=== PATIENT | female | born 1985 | race Caucasian/White ===

== ENCOUNTER 2019-03-31 17:35 | Observation (INO) ==
[2019-03-31] MEDS ORDERED: *HR* LORazepam 2 MG/ML VIAL IVP ONE (17:44)
--- NOTE | 2019-03-31 17:54 | Emergency Department Note ---
Disposition Clinical Impression: Generalized seizure, IVDU (intravenous drug user) Disposition: Admitted As Inpatient Condition: Fair Time of Disposition: 19:36 Seizure HPI - General Time Seen by Provider: 03/31/19 17:42 Source: patient, EMS Mode of arrival: EMS Limitations: no limitations Nursing Notes Reviewed: Yes Vital Signs Reviewed: Yes - History of Present Illness HPI Narrative: [facility]. Possibly several seizures. Known seizure disorder. Has been noncompliant with her medications. She also complains of neck pain, chest pain, fevers. She uses IV methamphetamine She also states she has recently experienced fevers and dark colored urine. She feels a heaviness in her chest Pt Subjective Complaint: seizure Onset (ago): Just [employer] Description of Episode: tonic-clonic movement Witnessed: yes - by bystander Associated trauma secondary to event: Yes (Neck pain) Seizure History: known seizure disorder Place: other ([facility]) Possible Precipitating Event: drug use (Injects methamphetamine), other (Has not been compliant with her seizure medications which include Lamictal, Depakote, gabapentin) Associated symptoms: Reports: chest pain, confusion, fever/chills Treatments prior to arrival: none - Related Data Home Medications Medication Instructions Recorded Confirmed Buprenorphine HCl/Naloxone HCl 1 tab SL BID 03/31/19 03/31/19 [Buprenorphin-Naloxon 8-2 mg Sl] cloNIDine HCl [CloNIDine HCl] 0.1 mg PO BID 03/31/19 03/31/19 Allergies Allergy/AdvReac Type Severity Reaction Status Date / Time Sulfa (Sulfonamide AdvReac Hives Verified 03/12/15 22:12 Antibiotics) All systems ED: reviewed and negative except as stated. Constitutional: Reports: fever, chills Eyes: Reports: as per HPI ENT ED: Reports: as per HPI Cardiovascular: Reports: chest pain Respiratory: Reports: as per HPI Gastrointestinal: Reports: as per HPI Genitourinary: Reports: as per HPI, other ("Dark urine") Musculoskeletal: Reports: neck pain Integumentary: Reports: as per HPI Neurological: Reports: numbness, other (Seizure) Psychiatric: Reports: as per HPI Endocrine: Reports: as per HPI Hematological/Lymphatic: Reports: as per HPI Allergic/Immunologic: Reports: as per HPI Past Medical History - Past Medical History Source: patient, old records reviewed Medical history: Reports: hepatitis, seizures, other Surgical history: Reports: other (dilation and curettage) Psychiatric history: Reports: anxiety, depression, PTSD FUR LINER history: Reports: bilateral tubal ligation - Social History Smoking Status: Current every day smoker Smokeless Tobacco Status: No Alcohol use: Reports: none Drug use: Reports: cocaine, marijuana, methamphetamine, IV Drug Use Physical Exam - General General appearance: alert, anxious - Head Head exam: atraumatic - Eye Eye exam: Present: normal appearance, PERRL - ENT ENT exam: normal exam - Neck Neck exam: Present: other (Track day) - Chest Chest inspection: Present: normal inspection, symmetric chest wall rise - Respiratory Respiratory exam: Present: normal lung sounds bilaterally - Cardiovascular Cardiovascular exam: Present: regular rate, normal rhythm - Rectal Exam Rectal exam: Present: deferred - Extremities Exam Extremities exam: Present: normal inspection, other (track day. Multiple superficial sores from self picking) - Neurological Exam Neurological exam: Present: alert, oriented X3, CN II-XII intact - Psychiatric Psychiatric exam: Present: anxious - Skin Skin exam: Present: warm, dry Course Course Narrative: Patient presented with a seizure. Known history thereof. She has been noncompliant with her medications. Secondarily she complains of recent fevers. History of active IV drug use. Con cern for bacteremia versus endocarditis. Vital Signs Temperature 98.6 F 03/31/19 17:39 Pulse Rate 90 03/31/19 17:39 Respiratory Rate 18 03/31/19 17:39 Blood Pressure 158/130 03/31/19 17:39 O2 Sat by Pulse Oximetry 97 03/31/19 17:39 Temperature 98.6 F 03/31/19 17:39 Pulse Rate 90 03/31/19 17:39 Respiratory Rate 18 03/31/19 17:39 Blood Pressure 158/130 03/31/19 17:39 O2 Sat by Pulse Oximetry 97 03/31/19 17:39 Oxygen Delivery Oxygen Delivery Room Air Seizure - Medical Records Medical records reviewed: Yes I reviewed the patient's medical records. - Lab Data Lab results reviewed: Yes I reviewed the patient's lab results. Result diagrams: 03/31/19 17:52 03/31/19 17:52 Lab Results 03/31/19 03/31/19 03/31/19 Range/Units 17:52 17:52 17:52 WBC 6.1 (4.3-11.1) K/mcL RBC 4.28 (3.82-4.97) M/mcL Hgb 13.0 (11.5-15.4) g/dL Hct 38.4 (35.3-44.9) % MCV 89.7 (83.0-100.0) fL MCH 30.4 (28.0-33.3) pg MCHC 33.9 (31.6-35.5) g/dL RDW 12.7 (11.5-14.5) % Plt Count 185 (140-400) K/mcL MPV 11.1 (9.4-12.4) fL Immature Gran % 0.3 (0-4) % Seg Neutrophils % 53.7 % Lymphocytes % 34.3 % Monocytes % 9.2 % Eosinophils % 1.8 % Basophils % 0.7 % Neutrophils # 3.3 (1.6-8.9) K/mcL Lymphocytes # 2.1 (0.6-4.6) K/mcL Monocytes # 0.6 (0.0-1.3) K/mcL Eosinophils # 0.1 (0.0-0.6) K/mcL Basophils # 0.0 (0.0-0.2) K/mcL ESR 14 (0-15) mm/hr Sodium 136 (136-145) mEq/L Potassium 3.9 (3.5-5.1) mEq/L Chloride 105 (98-107) mEq/L Carbon Dioxide 24 (23-29) mEq/L BUN 16 (6-20) mg/dL Creatinine 0.68 (0.60-1.20) mg/dL Est GFR ( Amer) > 60 (> 60) Est GFR (Non-Af Amer) > 60 (> 60) BUN/Creatinine Ratio 24 (6-26) Glucose 88 (70-105) mg/dL Calculated Osmolality 283 (280-300) Lactic Acid (0.5-2.2) mmol/L Calcium 9.3 (8.6-10.3) mg/dL Magnesium 2.0 (1.6-2.6) mg/dL Total Bilirubin 0.6 (0.3-1.0) mg/dL AST 35 (13-39) Units/L ALT 34 (7-52) Units/L Alkaline Phosphatase 79 (34-104) Units/L C-Reactive Protein < 5 (Less than 10) mg/L Serum Total Protein 7.3 (6.4-8.9) g/dL Albumin 4.3 (3.5-5.7) g/dL Globulin 3.0 (2.4-3.5) g/dL Albumin/Globulin Ratio 1.4 (1.1-2.2) Urine Color (Yellow) Urine Clarity (Clear) Urine pH (5.0-8.0) pH Units Ur Specific [place] (1.010-1.025) Urine Protein (Neg-Trace) mg/dL Urine Glucose (UA) (Normal) mg/dL Urine Ketones (Negative) mg/dL Urine Blood (Negative) Urine Nitrite (Negative) Urine Bilirubin (Negative) Urine Urobilinogen (Normal) mg/dL Ur Leukocyte Esterase (Negative) Valproic Acid < 4 L (50-100) mcg/mL 03/31/19 03/31/19 Range/Units 17:52 19:01 WBC (4.3-11.1) K/mcL RBC (3.82-4.97) M/mcL Hgb (11.5-15.4) g/dL Hct (35.3-44.9) % MCV (83.0-100.0) fL MCH (28.0-33.3) pg MCHC (31.6-35.5) g/dL RDW (11.5-14.5) % Plt Count (140-400) K/mcL MPV (9.4-12.4) fL Immature Gran % (0-4) % Seg Neutrophils % % Lymphocytes % % Monocytes % % Eosinophils % % Basophils % % Neutrophils # (1.6-8.9) K/mcL Lymphocytes # (0.6-4.6) K/mcL Monocytes # (0.0-1.3) K/mcL Eosinophils # (0.0-0.6) K/mcL Basophils # (0.0-0.2) K/mcL ESR (0-15) mm/hr Sodium (136-145) mEq/L Potassium (3.5-5.1) mEq/L Chloride (98-107) mEq/L Carbon Dioxide (23-29) mEq/L BUN (6-20) mg/dL Creatinine (0.60-1.20) mg/dL Est GFR ( Amer) (> 60) Est GFR (Non-Af Amer) (> 60) BUN/Creatinine Ratio (6-26) Glucose (70-105) mg/dL Calculated Osmolality (280-300) Lactic Acid 0.4 L (0.5-2.2) mmol/L Calcium (8.6-10.3) mg/dL Magnesium (1.6-2.6) mg/dL Total Bilirubin (0.3-1.0) mg/dL AST (13-39) Units/L ALT (7-52) Units/L Alkaline Phosphatase (34-104) Units/L C-Reactive Protein (Less than 10) mg/L Serum Total Protein (6.4-8.9) g/dL Albumin (3.5-5.7) g/dL Globulin (2.4-3.5) g/dL Albumin/Globulin Ratio (1.1-2.2) Urine Color Yellow (Yellow) Urine Clarity Cloudy A (Clear) Urine pH 7.0 (5.0-8.0) pH Units Ur Specific [place] 1.020 (1.010-1.025) Urine Protein Negative (Neg-Trace) mg/dL Urine Glucose (UA) Normal (Normal) mg/dL Urine Ketones Trace H (Negative) mg/dL Urine Blood Negative (Negative) Urine Nitrite Negative (Negative) Urine Bilirubin Negative (Negative) Urine Urobilinogen Normal (Normal) mg/dL Ur Leukocyte Esterase Negative (Negative) Valproic Acid (50-100) mcg/mL - Radiology Data Radiology results reviewed: Yes I reviewed the patient's radiology results. - EKG Data EKG attestation: Yes I reviewed and interpreted this EKG.
[2019-03-31 18:34] LABS: Basophils % 0.7 %; Eosinophils # 0.1 K/mcL (0.0-0.6); Eosinophils % 1.8 %; Hematocrit 38.4 % (35.3-44.9); Immature Granulocytes % 0.3 % (0-4); Lymphocytes # 2.1 K/mcL (0.6-4.6); Lymphocytes % 34.3 %; Mean Corpuscular HGB Conc 33.9 g/dL (31.6-35.5); Mean Corpuscular Hemoglobin 30.4 pg (28.0-33.3); Mean Corpuscular Volume 89.7 fL (83.0-100.0); Mean Platelet Volume 11.1 fL (9.4-12.4); Monocytes # 0.6 K/mcL (0.0-1.3); Monocytes % 9.2 %; Neutrophils # 3.3 K/mcL (1.6-8.9); Platelet Count 185 K/mcL (140-400); Red Blood Count 4.28 M/mcL (3.82-4.97); Red Cell Distribution Width 12.7 % (11.5-14.5); Segmented Neutrophils % 53.7 %; White Blood Count 6.1 K/mcL (4.3-11.1)
[2019-03-31 19:15] LABS: Bilirubin,Urine Negative (Negative); Blood,Urine Negative (Negative); Clarity,Urine Cloudy (Clear); Color,Urine Yellow (Yellow); Glucose,Urine (UA) Normal (Normal); Ketones,Urine Trace mg/dL (Negative); Leukocyte Esterase,Urine Negative (Negative); Nitrite,Urine Negative (Negative); Protein,Urine Negative (Neg-Trace); Urobilinogen,Urine Normal (Normal)
[2019-03-31 19:20] LABS: Alanine Aminotransferase 34 Units/L (7-52); Albumin 4.3 g/dL (3.5-5.7); Albumin/Globulin Ratio 1.4 (1.1-2.2); Alkaline Phosphatase 79 Units/L (34-104); Aspartate Amino Transferase 35 Units/L (13-39); BUN/Creatinine Ratio 24 (6-26); Bilirubin,Total 0.6 mg/dL (0.3-1.0); Blood Urea Nitrogen 16 mg/dL (6-20); C-Reactive Protein < 5 mg/L (Less than 10); Calcium 9.3 mg/dL (8.6-10.3); Carbon Dioxide 24 mEq/L (23-29); Chloride 105 mEq/L (98-107); Glucose 88 mg/dL (70-105); Osmolality,Calculated 283 (280-300); Potassium 3.9 mEq/L (3.5-5.1); Sodium 136 mEq/L (136-145); Total Protein 7.3 g/dL (6.4-8.9); Valproate < 4 mcg/mL (50-100); eGFR For African Americans > 60 (> 60); eGFR For Non-African Americans > 60 (> 60)
[2019-03-31] MEDS ORDERED: *HR* LORazepam 2 MG/ML VIAL IVP PRN (20:28)
[2019-03-31] MEDS ORDERED: Acetaminophen 325 MG TABLET PO PRN (20:28)
[2019-03-31] MEDS ORDERED: traMADol 50 MG TABLET PO PRN (20:28)
[2019-03-31] MEDS ORDERED: Naloxone 0.4 MG/ML INJ IVP PRN (20:28)
[2019-03-31] MEDS ORDERED: Ketorolac 30 MG/ML VIAL IVP PRN (20:28)
[2019-03-31] MEDS ORDERED: levETIRAcetam 1,000 MG in 0.9 % Sodium Chloride 100 ML IVPB ONE (20:36)
[2019-03-31 20:45] LABS: Bacteria,Urine None Seen per hpf (None-Few); Hyaline Casts,Urine None Seen per lpf (None-Few); Mucus,Urine Few (Few); RBC,Urine 0-3 per hpf (0-3); Squamous Epithelial Cell,Urine Moderate per lpf (None-Few); WBC,Urine 0-3 per hpf (0-3)
[2019-03-31] MEDS ORDERED: rOPINIRole 0.25 MG TABLET PO SCH (21:00)
[2019-03-31] MEDS: Ringers Solution, Lactated 1,000 ML IVC SCH (21:29)
[2019-03-31] MEDS: cloNIDine HCl 0.1 MG TABLET PO SCH (22:14)
[2019-03-31] MEDS: Gabapentin 400 MG CAPSULE PO SCH (22:14)
--- NOTE | 2019-03-31 22:37 | Internal Med History&Physical ---
Date of Encounter: 03/31/19 Time of Encounter: 22:35 Internal Medicine - H&P: HPI Chief complaint: seizure Admitted From: Home Plans for Post Hospital Care: Home History of present illness: Demetria Montez is a 33-year-old woman with seizure disorder (not adherent to medications), mood disorder and substance use disorder. She says she has been having seizures of increasing frequency over the last number of days stating that yesterday was a bad one. Today she was incarcerated and was witnessed to have multiple seizures and [facility]. She was brought in for evaluation at which time she was complaining of generalized body aches and also given reports of generalized malaise. No seizure activity was witnessed in the ER. On her lab work was grossly within normal limits. It is reported by the ED physician that she complained of having fevers and chills over the past number of weeks for which reason blood cultures were obtained given her illicit drug use by injection history. Vitals: Reviewed General: Unkempt young woman lying in bed in moderate discomfort. Skin: Warm, dry with multiple track day and lesions of skin popping. HEENT: Slightly dry mucous membranes. No conjunctivae pallor. Neck: No lymphadenopathy. No JVD. No carotid bruits. No palpable thyroid. Chest: Normal thoracic expansion. Normal breath sounds. Clear to auscultation. Heart: Normal S1 & S2; rhythmic. No rubs or murmurs. Abdomen: Non-distended, soft and non-tender to palpation. No peritoneal reaction. Extremities: No clubbing, cyanosis or edema. No calf tenderness. Normal distal pulses. Neurological: Awake, alert and oriented to person, place and time. No focal deficits. Psych: Affect appropriate. Assessment/Plan 1. Seizures: Secondary to nonadherence to her medications and likely triggered by her ongoing illicit drug use activity. She was unable to specify what medications exactly she is on so with the help of our pharmacist we were able to obtain records of what she has been prescribed in the past 1 year. We will give her loading dose of Keppra tonight and continue with 500 mg twice a day as of tomorrow. She is also on gabapentin. Seizure precautions ordered. Fluid resuscitation. 2. Substance use disorder: Clonidine and Suboxone have been ordered as is seen on her medication list. 3. Mood disorder: Resume quetiapine and the escitalopram. 4. Fevers: Reported but not corroborated. Signs of skin/soft tissue infection present. No evidence of a urinary tract infection. No respiratory symptoms or radiographic signs concerning for pneumonia. No alteration to her sensorium or meningismus concerning for CUSTOMER RETENTION SPECIALIST infection. While she is at risk for underlying endocarditis, she has no pleuritic chest pain suggestive of septic emboli, no peripheral stigmata, no leukocytosis, CRP less than 5 and ESR 14 making this of low likelihood. Blood cultures have been obtained empirically and we will continue to monitor her vital signs before triggering a need for antimicrobials and further testing. 5. Neck pain: She has a prior T6 compression fracture that has been internally stabilized. Pain medications as needed. Past Med Surg Social Fam HX - Past Medical History Medical history: hepatitis, seizures, other Additional medical history: hep c positive Psychiatric history: anxiety, depression, PTSD - Past Surgical History Surgical History: other (dilation and curettage) Additional surgical history: d/c in 96. vaginal delivery x 2 in 2003, 2005, c2 through c9 (pins and plates) - Social History Smoking Status: Current every day smoker Smokeless Tobacco Status: No Alcohol use: none Drug use: cocaine, marijuana, methamphetamine, IV Drug Use Internal Medicine - H&P: Meds Buprenorphine HCl/Naloxone HCl [Buprenorphin-Naloxon 8-2 mg Sl] 1 tab SL BID 03/31/19 [History] cloNIDine HCl [CloNIDine HCl] 0.1 mg PO BID 03/31/19 [History] Allergy/AdvReac Type Severity Reaction Status Date / Time Sulfa (Sulfonamide AdvReac Hives Verified 03/12/15 22:12 Antibiotics) All Systems PM: A 10-system review of systems was performed and is negative for pertinent findings except as documented above in the HPI. Family history reviewed and found non-contributory. - Constitutional Vitals: Temp Pulse Resp BP Pulse Ox 98.1 F 88 17 182/120 100 03/31/19 22:10 03/31/19 22:10 03/31/19 22:10 03/31/19 22:10 03/31/19 22:10 Exam: . Internal Med - H&P Results - Labs CBC & Chem 7: 03/31/19 17:52 03/31/19 17:52 Labs: Short CBC 03/31/19 Range/Units 17:52 WBC 6.1 (4.3-11.1) K/mcL Hgb 13.0 (11.5-15.4) g/dL Hct 38.4 (35.3-44.9) % Plt Count 185 (140-400) K/mcL Neutrophils # 3.3 (1.6-8.9) K/mcL BMP 03/31/19 17:52 Sodium 136 Potassium 3.9 Chloride 105 Carbon Dioxide 24 BUN 16 Creatinine 0.68 Glucose 88 Calcium 9.3 Liver Function 03/31/19 Range/Units 17:52 Total Bilirubin 0.6 (0.3-1.0) mg/dL AST 35 (13-39) Units/L ALT 34 (7-52) Units/L Alkaline Phosphatase 79 (34-104) Units/L Albumin 4.3 (3.5-5.7) g/dL Urine 03/31/19 Range/Units 19:01 Urine Color Yellow (Yellow) Urine Clarity Cloudy A (Clear) Urine pH 7.0 (5.0-8.0) pH Units Ur Specific [place] 1.020 (1.010-1.025) Urine Protein Negative (Neg-Trace) mg/dL Urine Glucose (UA) Normal (Normal) mg/dL - Impressions ITS Impressions Chest X-Ray 03/31/19 18:10 IMPRESSION: No acute process. Healing fracture right 4th rib posteriorly D/ / Ky Mello MD / Ky Mello MD Interpreting Provider: Ky Mello MD Head CT 03/31/19 18:35 IMPRESSION: Grossly limited exam due to patient motion. If there is strong clinical suspicion, follow-up repeat exam when the patient is sufficiently able to cooperate. D/ / Rafi Mcconnell MD / Rafi Mcconnell MD Interpreting Provider: Rafi Mcconnell MD Cervical Spine CT 03/31/19 18:39 IMPRESSION: Grossly limited exam due to patient motion, no obvious or gross abnormality. Prior T6 compression fracture with internal stabilization. D/ / Rafi Mcconnell MD / Rafi Mcconnell MD Interpreting Provider: Rafi Mcconnell MD - Time Spent With Patient Total time spent is greater than 50% in coordination of care (as documented) at patient's floor/unit and/or counseling patient:
[2019-03-31 22:46] LABS: Amphetamine Screen,Urine Positive ng/mL (Cutoff=1000); Barbiturate Screen,Urine Negative ng/mL (Cutoff=200); Benzodiazepines Screen,Urine Negative ng/mL (Cutoff=200); Cannabinoid Screen,Urine Positive ng/mL (Cutoff = 50); Cocaine Screen,Urine Negative ng/mL (Cutoff= 300); Opiate Screen,Urine Negative ng/mL (Cutoff=300); Phencyclidine Screen,Urine Negative ng/mL (Cutoff=25)
[2019-03-31] MEDS: BUPRENORPHIN NALOXON SCH (23:24)
[2019-04-01] MEDS: Ringers Solution, Lactated 1,000 ML IVC SCH (03:42)
[2019-04-01] MEDS ORDERED: levETIRAcetam 250 MG TABLET PO SCH (06:00)
[2019-04-01] MEDS: Gabapentin 400 MG CAPSULE PO SCH (09:23)
[2019-04-01] MEDS: cloNIDine HCl 0.1 MG TABLET PO SCH (09:24)
[2019-04-01] MEDS: BUPRENORPHIN NALOXON SCH (09:27)
[2019-04-01 11:02] VITALS: BP 126/92
--- NOTE | 2019-04-01 13:01 | Electrocardiograph Report ---
[address] [address] Test Date: 2019-03-31 Pat Name: Demetria Montez Department: EXAM25 Room: 2NE29 Gender: F Head Of History: : 1985 Requested By: Maurilio Ness Order Number: [id number] Reading MD: Kevin Parker Measurements Intervals [place] Rate: 78 P: 62 CO: 125 QRS: 77 QRSD: 93 T: 43 QT: 394 QTc: 449 Interpretive Statements Sinus rhythm Electronically Signed On 04-01-2019 13:00:16 EDT by Kevin Parker
--- NOTE | 2019-04-01 14:39 | Discharge Summary ---
- NOTES TO OUTPATIENT PROVIDER Notes to Outpatient Provider: Seizure 2/2 drug use and medication noncompliance Date of Encounter: 04/01/19 Time of Encounter: 14:33 Hospital course: Dear Doctors, I recently had the opportunity to care for this patient during their recent hospital stay at [facility]. Demetria Montez is a 33 F w hx epilepsy, IVDU, who presents from prison after having a seizure. Pt reported using drugs recently and has long been noncompliant with AEDs. Eval in the ED unremarkable for separate acute process. Patient admitted and given fluids and IV keppra. She perked up later the next day and demanded to leave. Without any seizures and with patient capacity to make decisions, she will be discharged and instructed to return to prison. Dx: Seizures, polysubstance use disorder Pertinent tests/consults: CT head unremarkable, Utox with suboxone & amphetamines & THC Follow up: PCP 1-2 weeks Tests pending: none Med changes: resumed Keppra 500 bid Mental status: awake, fully oriented Code status: Full It has been my pleasure participating in this patient's care. Please contact me with any questions or concerns regarding their hospital stay. Sincerely, Gerber Pagan MD - Discharge Medications Prescriptions: New levETIRAcetam [Keppra] 500 mg PO Q12HR 30 Days #60 tablet Continued cloNIDine HCl [CloNIDine HCl] 0.1 mg PO BID Buprenorphine HCl/Naloxone HCl [Buprenorphin-Naloxon 8-2 mg Sl] 1 tab SL BID Home Medications: Buprenorphine HCl/Naloxone HCl [Buprenorphin-Naloxon 8-2 mg Sl] 1 tab SL BID 03/31/19 [History] cloNIDine HCl [CloNIDine HCl] 0.1 mg PO BID 03/31/19 [History] levETIRAcetam [Keppra] 500 mg PO Q12HR 30 Days #60 tablet 04/01/19 [Rx] Allergies/Adverse Reactions: Allergy/AdvReac Type Severity Reaction Status Date / Time Sulfa (Sulfonamide AdvReac Hives Verified 03/12/15 22:12 Antibiotics) Date of admission: 03/31/19 20:23 Primary care physician: PCP NONE Consults: 03/31/19 22:47 Consult to Nutrition [CONS] Routine Comment: Consulting Provider: NUTRITION Reason for Dietary Consult: PO Supplementation Consult to Automotive Quality Manager [CONS] Routine Reason for SW Consult: HOMELESS - Constitutional Vitals: Temp Pulse Resp BP Pulse Ox 98 F 78 16 126/92 99 04/01/19 10:59 04/01/19 10:59 04/01/19 10:59 04/01/19 10:59 04/01/19 10:59 Exam: General: NAD, poor eye contact, chronically ill appearing Thoracic: Normal breath sounds b/l, no wheezing or crackles Cardio: Normal S1 and S2, regular rate and rhythm Abdomen: Soft, nontender Extremities: Warm, well perfused. DP pulses 2+ b/l. No edema. Skin: No rashes, bruises, or ulcers. Does have numerous scattered excoriations on all 4 extremities Neuro: Awake, fully oriented. Speech fluent - Patient Status Disposition: Home, Self-Care Condition: Fair Functional capacity at discharge: independent ambulation Overall status at discharge: patient is progressing back to baseline - Discharge Instructions Forms: ED Satisfaction Letter - Diet and Activity Activity: resume usual activities as tolerated (no driving) Diet: advance to your usual diet
[2019-04-01] MEDS ORDERED: Gabapentin 300 MG CAPSULE PO SCH (15:00)
== END 2019-04-01 15:39 | disposition home or self-care (01) ==
LOC: 2NENU 17:35 → EMEROOARM 17:35 → SUATTDRO 20:23 → 2NENU 20:55
PROVIDERS: ADMIT Internal Medicine; ATTEND Internal Medicine